=== PATIENT | female | born 1985 | race Caucasian/White ===

== ENCOUNTER 2016-02-11 18:07 | Emergency (ER) | payer MEDICAID ==
[~2016-02-11] VITALS: Ht 165.1 cm; Wt 108.4 kg
[2016-02-11 19:46] VITALS: BP 127/72
[2016-02-11] MEDS ORDERED: IBUPROFEN 800 MG TAB PO ONE (21:45)
== END 2016-02-11 21:53 | disposition home or self-care (01) ==
LOC: ER 18:42
DX: S80.02XA Contusion of left knee, initial encounter (principal); W01.0XXA Fall on same level from slipping, tripping and stumbling without subsequent striking against object, initial encounter; Y93.89 Activity, other specified; Y99.9 Unspecified external cause status; Y92.009 Unspecified place in unspecified non-institutional (private) residence as the place of occurrence of the external cause
CPT/HCPCS: 73562